=== PATIENT | male | born 1945 | race Caucasian/White ===

== ENCOUNTER → 2025-05-24 | Outpatient (CLI) | payer OTHER, SELFPAY ==
--- NOTE | 2025-05-24 13:54 | ECHOD_ITS ---
Reason For Study Reason For Study: HTN Procedure This was a 2D Doppler, Color Flow transthoracic echocardiogram. Exam performed in department. Left Ventricle Normal LV size. Mild concentric left ventricular hypertrophy. The left ventricular ejection fraction is 65 %. Stage 1 diastolic dysfunction. No regional wall motion abnormalities noted. Right Ventricle Normal RV size. Normal systolic function. Atria Normal left atrium. Normal right atrium. Mitral Valve Normal mitral valve. Tricuspid Valve Normal tricuspid valve. Aortic Valve Trisinus/trileaflet aortic valve. Moderate focal aortic valve calcification. Peak aortic valve gradient 14 mmHg. Mean aortic valve gradient 9 mmHg. Mild aortic stenosis. Great Vessels Normal aortic root. The pulmonary artery is normal size. Inferior vena cava collapse with respiration. Pericardium/Pleural No pericardial effusion. MMode/2D Measurements & Calculations LVIDd: 4.7 cm IVSd: 1.2 cm LVOT diam: 2.0 cm LVIDs: 2.4 cm LVPWd: 1.2 cm LVOT area: 3.1 cm2 RVDd: 3.5 cm FS: 48.1 % Ao root diam: 3.3 cm LAV(MOD-bp): 44.4 ml LVAd ap4: 27.5 cm2 LAV(MOD-bp) Indexed: 18.4 ml/m2 LVLd ap4: 8.4 cm LAV(MOD-sp2): 37.8 ml EDV(MOD-sp4): 73.6 ml LAV(MOD-sp4): 50.2 ml EDV(sp4-el): 76.2 ml LVAs ap4: 14.1 cm2 LVLs ap4: 7.2 cm ESV(MOD-sp4): 23.3 ml ESV(sp4-el): 23.4 ml EF(MOD-sp4): 68.3 % EF(sp4-el): 69.3 % SV(MOD-sp4): 50.2 ml SV(MOD-sp2): 57.3 ml LVAd ap2: 29.2 cm2 LVLd ap2: 8.6 cm SI(MOD-sp4): 20.9 ml/m2 SI(MOD-sp2): 23.8 ml/m2 EDV(MOD-sp2): 81.0 ml EDV(sp2-el): 84.2 ml LVAs ap2: 13.9 cm2 LVLs ap2: 6.9 cm ESV(MOD-sp2): 23.7 ml ESV(sp2-el): 23.6 ml EF(MOD-sp2): 70.7 % SV(sp4-el): 52.8 ml LA A4 area: 18.7 cm2 LA dimension(2D): 3.8 cm TAPSE: 1.6 cm RA A4 area: 13.7 cm2 Time Measurements MV dec time: 0.28 sec Doppler Measurements & Calculations MV E max byron: 79.3 cm/sec Lat Peak E' Byron: 9.0 cm/sec Med Peak E' Byron: 6.7 cm/sec MV A max byron: 114.4 cm/sec E/E' lat: 8.8 E/E' med: 11.8 MV E/A: 0.69 MV dec slope: 278.4 cm/sec2 Ao V2 max: 189.5 cm/sec LV V1 max: 94.2 cm/sec Ao max P.4 mmHg LV V1 max P.5 mmHg Ao V2 mean: 145.4 cm/sec LV V1 mean P.0 mmHg Ao mean P.0 mmHg LV V1 mean: 67.7 cm/sec Ao V2 VTI: 40.9 cm LV V1 VTI: 20.3 cm AV (velocity ratio): 0.50 ATUL(I,D): 1.6 cm2 ATUL(V,D): 1.6 cm2 SV(LVOT): 63.9 ml PA V2 max: 93.3 cm/sec ECHO/Echo Complete Interpretation Summary Normal LV size. Mild concentric left ventricular hypertrophy. The left ventricular ejection fraction is 65 %. Stage 1 diastolic dysfunction. Moderate focal aortic valve calcification. Mild aortic stenosis. Mean aortic valve gradient 9 mmHg. Ordering Physician: Jarrett Cm Referring Physician: Jarrett Cm Performed By: Geovanna Reynoso RDCS
[2025-05-24 14:28] LABS: Color, Urine Yellow (Yellow); Glucose, Dipstick Normal (Normal); Ketone-Dipstick Negative (Negative); Leukocyte Esterase-Dipstick Negative /ul (Negative); Nitrite-Dipstick Negative (Negative); Occult Blood-Urine Negative /ul (Negative); Protein-Dipstick 15 mg/dl (Negative); Specific Gravity, Urine 1.010 (1.002-1.030); Urine Bilirubin Dipstick Negative (Negative)
[2025-05-24 15:19] LABS: Free T3 2.8 pg/mL (2.18-3.98)
== END | disposition home or self-care (01) ==
PROVIDERS: Referring Provider Chiropractor; Visit Provider Chiropractor
DX: I11.9 Hypertensive heart disease without heart failure (principal); E03.9 Hypothyroidism, unspecified; I35.0 Nonrheumatic aortic (valve) stenosis
CPT/HCPCS: 36415; 81002; 84439; 84443; 84481; 93306